=== PATIENT | female | born 1990 | race Two or more races ===

== ENCOUNTER 2023-10-22 11:38 | Emergency (ER) | payer SELFPAY ==
[2023-10-22 11:40] VITALS: BP 151/90
--- NOTE | 2023-10-22 12:30 | ED.MUSCINJ ---
HPI-Injury
General
Chief Complaint: Musculo-Skeletal Complaint
Source: patient
Time Seen by Provider: 10/22/23 12:21
History of Present Illness-Injury
Initial Injury comments:
33yoF presenting with her for evaluation of left foot pain. Patient accidentally stepped on a scooter last night which caused her foot to roll. This occurred around 10pm last night. Her pain continues this morning and she is unable to bear
weight. No paresthesias. No other injuries reported. No prior injuries to the left foot.
Past History
Past History
ED Past Medical History: Other (allergies)
ED Past Surgical History: None
Social History
Tobacco: Non-smoker
Alcohol: None
Drug: None
Personal:
Living: with family
Phy Exam
Physical Exam
Physical Exam:
Left foot: Mild soft tissue swelling to lateral foot with associated tenderness. No deformity. No ecchymosis or wounds. No tenderness in ankle. ROM of ankle intact. 2+ DP pulse and sensation intact.
General Physical Exam
General Presentation: well appearing and no apparent distress
General age: appears stated age
General Skin: warm and dry
Injury Course
Orders/Labs/Results
Orders:
Orders
10/22/23 11:43
Foot, Left 3 View [CR Foot - Left Min 3 Views] Urgent
Comment:
Reason For Exam: left foot injury
10/22/23 11:44
Ankle, left 3 view CR [CR Ankle - Left Min 3 Views ] Urgent
Comment:
Reason For Exam: left ankle injury, pain and swelling
10/22/23 12:32
Bobo Wrap Left-Treatment ONCE
Air Splint Left-Treatment ONCE
Crutches-Treatment ONCE
MDM/Problems Addressed
Differential Diagnosis Includes:
33yoF here with L foot pain after an injury yesterday. No deformity on exam. LLE is neurovascularly intact. Differential diagnosis includes but is not limited to: Sprain, fracture
X-rays of left foot and ankle obtained which are negative for fracture. She was diagnosed with a foot sprain. Bobo wrap, Aircast, and crutches provided. Supportive care discussed. Advise follow-up with orthopedics with persistent symptoms
*Critical Care Note
Total Time (30-74mins, 75-104mins- exclusive of procedures): Not Applicable
ED Attending Note
-
Portions of this chart may have been created with voice recognition software.� Occasional wrong word or��sound alike� substitutions may have occurred due to the inherent limitations of voice recognition software.
Discharge Plan
Departure
Patient Disposition: Home (Routine Discharge)
Date of Disposition: 10/22/23
Time of Disposition: 12:32
Patient with high blood pressure during this ER visit?: Yes
Discharge Problem:
Sprain of left foot
Instructions: Sprain (DC)
Prescriptions:
No Action
[id number] fum-folic 1 EACH tablet
1 ea PO DAILY
ibuprofen 600 MG tablet
600 mg PO Q4HPRN PRN (Reason: moderate pain/cramps) 0RF
Referrals:
Diego Spear MD [Active] -
Activity Restrictions/Additional Instructions:
Rest, ice, compress, and elevate your foot. Use crutches for comfort. Take Tylenol and ibuprofen for pain.
Please follow-up with orthopedics if symptoms persist.
Interventions
Interventions:
*Risk Screen - Suicide Last Done: 10/22/23 11:40
*General Assessment Last Done: 10/22/23 11:40
*Neglect/Abuse Screening Last Done: 10/22/23 11:40
*Nursing Disposition Last Done: 10/22/23 13:30
ED-Musculoskeletal Assessment Last Done: 10/22/23 13:00
Discharge Date and Time
Discharge Date/Time: 10/22/23 13:47
Print Language: ITALIAN
[2023-10-22 13:00] VITALS: BP 139/84
== END 2023-10-22 13:47 | disposition home or self-care (01) ==
LOC: EMR 11:38
PROVIDERS: EMERGENCY PHYSICIAN Emergency Medicine; FAMILY PHYSICIAN Family Medicine
DX: M79.672 Pain in left foot (principal); S93.602A Unspecified sprain of left foot, initial encounter; W22.8XXA Striking against or struck by other objects, initial encounter; R03.0 Elevated blood-pressure reading, without diagnosis of hypertension
CPT/HCPCS: 99283; 29515; 73610; 73630